=== PATIENT | female | born 1955 | race African-American/Black ===

== ENCOUNTER 2018-08-04 10:07 | Emergency (ER) | payer SELFPAY ==
[~2018-08-04] VITALS: Ht 180.3 cm; Wt 97.1 kg
[~2018-08-04 10:07] MED LIST: IBUPROFEN400 MG ORAL; IBUPROFEN600 MG ORAL; NKM
--- NOTE | 2018-08-04 10:26 | Emergency Room Report ---
History of Present Illness General Chief Complaint: Chest Pain Source: Patient Present Illness HPI 62-year-old female with history of stage III kidney disease otherwise no medical problems presents with chest pressure, dizziness, nausea vomiting, symptoms started last night, she can't think of any obvious triggers, she denies abdominal pain, denies fever, does report a mild nonproductive cough this morning, denies leg pain, leg swelling, hemoptysis, diarrhea, back pain, numbness, tingling, weakness, slurred speech, any other symptoms. Allergies: Coded Allergies: No Known Allergies (Unverified , 08/04/18) Patient History Past Medical History: see triage record Reviewed Nursing Documentation: PMH: Agreed; PSxH: Agreed Nursing Documentation-PMH Past Medical History: No Stated History Review of Systems All Other Systems: negative except mentioned in HPI Physical Exam Vital Signs Date Time Temp Pulse Resp B/P (MAP) Pulse Ox O2 Delivery O2 Flow Rate FiO2 08/04/18 10:19 98.4 93 19 134/77 100 Room Air Sp02 EP Interpretation: reviewed, normal General Appearance: no apparent distress, alert, non-toxic Head: normocephalic Eyes: bilateral eye normal inspection, bilateral eye PERRL, bilateral eye EOMI ENT: normal ENT inspection, hearing grossly normal, normal pharynx, no angioedema, normal voice, moist mucus membranes Neck: normal inspection, full range of motion, supple, supple/symm/no masses Respiratory: chest non-tender, lungs clear, normal breath sounds, no rhonchi, no respiratory distress, no retraction, no accessory muscle use, speaking full sentences, chest symmetrical, palpation of chest normal Cardiovascular #1: normal peripheral pulses, regular rate, rhythm, no edema, no gallop, no JVD, no murmur, no rub Cardiovascular #2: 2+ radial (R), 2+ radial (L) Gastrointestinal: normal inspection, non tender, soft, no mass, no guarding, no rebound Rectal: deferred Genitourinary: normal inspection, no CVA tenderness Musculoskeletal: back normal, gait/station normal, normal range of motion, non- tender, no calf tenderness, Devan's Sign negative Neurologic: alert, responsive, 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 III-XII nml as tested, motor strength/tone normal, sensory intact, speech normal Psychiatric: judgement/insight normal, memory normal, mood/affect normal, anxious Skin: normal color, no rash, warm/dry, normal turgor Lymphatic: no adenopathy Medical Decision Making Diagnostic Impression: Primary Impression: Chest pain Additional Impression: Dizziness ER Course Patient with normal chest x-ray, head CT, basic labs, EKG, blood pressure, clinical examination, do not suspect TIA, ACS, any other acute abnormalities, patient normal pulse examination, will discharge with reassurance, suspect patient is under a lot of anxiety and that may be attributing to her symptomatology. She understands that she is to return if she develops any recurrent chest pain or any new symptoms at all. Currently she has no symptoms. EKG Diagnostic Results EKG Time: 10:25 EP Interpretation: no stemi Rate: normal Rhythm: NSR ST Segments: no acute changes ASA given to the pt in ED: No Rhythm Strip Diag. Results Rhythm Strip Time: 10:33 EP Interpretation: yes Rate: 84 Chest X-Ray Diagnostic Results Chest X-Ray Diagnostic Results : Chest X-Ray Ordered: Yes # of Views/Limited/Complete: 1 View Indication: Chest Pain EP Interpretation: Yes Interpretation: no consolidation, no effusion, no pneumothorax, no acute cardiopulmonary disease Impression: No acute disease Electronically Signed by: Anna Philip MD Last Vital Signs Date Time Temp Pulse Resp B/P (MAP) Pulse Ox O2 Delivery O2 Flow Rate FiO2 08/04/18 10:19 98.4 93 19 134/77 100 Room Air Disposition: HOME, SELF-CARE ANNA PHILIP M.D Aug 04, 2018 10:26
[2018-08-04] MEDS ORDERED: Meclizine 25mg tab ORAL ONE (10:30)
[2018-08-04 10:57] LABS: HEMATOCRIT 41.2 % (37.0-47.0); HEMOGLOBIN 13.8 G/DL (12.0-16.0); MEAN CORPUSCULAR VOLUME 90 FL (80-99); PLATELET COUNT 163 K/UL (150-450); RED CELL DISTRIBUTION WIDTH 10.9 % (11.6-14.8); WHITE BLOOD COUNT 8.2 K/UL (4.8-10.8)
[2018-08-04 11:05] LABS: ANION GAP 12 mmol/L (5-15); BLOOD UREA NITROGEN 12 mg/dL (7-18); CALCIUM 8.8 MG/DL (8.5-10.1); CARBON DIOXIDE 23 MMOL/L (21-32); CHLORIDE 104 MMOL/L (98-107); CREATININE 1.1 MG/DL (0.55-1.30); POTASSIUM 4.4 MMOL/L (3.5-5.1); SODIUM 139 MMOL/L (136-145)
[2018-08-04 11:07] LABS: ALANINE AMINOTRANSFERASE 17 U/L (12-78); ALBUMIN 3.7 G/DL (3.4-5.0); ALBUMIN/GLOBULIN RATIO 0.9 (1.0-2.7); ALKALINE PHOSPHATASE 89 U/L (46-116); ASPARTATE AMINO TRANSFERASE 25 U/L (15-37); BILIRUBIN,TOTAL 0.5 MG/DL (0.2-1.0)
[2018-08-04 11:11] VITALS: BP 143/83
--- NOTE | 2018-08-04 11:17 | Diagnostic Imaging Report ---
Indication: Chest pain Technique: One view of the chest Comparison: 02/28/2015 Findings: Lungs and pleural spaces are clear. Heart size is normal. No significant interim change Impression: No acute process
--- NOTE | 2018-08-04 11:19 | Diagnostic Imaging Report ---
Indication: Dizziness Technique: Continuous helical CT scanning of the head was performed without intravenous contrast material. Axial and coronal 5 mm sections were generated. Radiation dose was minimized using automated exposure control Dose: Total Dose Length Product - DLP 1333.[address] Dose Index - CTDIvol(s) 70.38 mGy. Comparison: none Findings: The ventricular system is normal in size and configuration. There is no shift of midline structures. No abnormal extra-axial fluid collections are noted. There is no evidence of intracerebral bleeding. No other abnormal high or low density areas are noted within the brain. Impression: Normal CT scan of the head without contrast material. The CT scanner at [facility] is accredited by the [employer] and the scans are performed using protocols designed to limit radiation exposure to as low as reasonably achievable to attain images of sufficient resolution adequate for diagnostic evaluation. Noncontrast
[2018-08-04] MEDS ORDERED: RANITIDINE HCL150 MG ORAL (12:53)
[2018-08-04] MEDS ORDERED: MECLIZINE HCL25 MG ORAL (12:53)
[2018-08-04 13:06] VITALS: BP 98/80
[2018-08-04 13:07] VITALS: BP 98/80
--- NOTE | 2018-08-06 14:14 | Cardiology Report ---
APPROVED REPORT EKG Measurement Heart [id number] Normal sinus rhythm Normal ECG
== END 2018-08-04 13:13 | disposition home or self-care (01) ==
LOC: EMR 10:29
DX: R07.89 Other chest pain (principal); R42 Dizziness and giddiness
CPT/HCPCS: 36415; 70450; 71045; 80053; 84484; 85007; 85025; 93005; 96374; 99284; J2405

== ENCOUNTER 2019-11-13 09:23 | Emergency (ER) | payer BC, MEDICAID ==
[~2019-11-13] VITALS: Ht 185.4 cm; Wt 95.3 kg
[2019-11-13 09:22] VITALS: BP 158/80
[~2019-11-13 09:23] MED LIST changes: +MECLIZINE HCL25 MG ORAL; +RANITIDINE HCL150 MG ORAL
--- NOTE | 2019-11-13 09:24 | NUR ---
ED Nurse Note: pt walked in to ER from home due to dry cough and runny nose x 2 days. pt aao x4 and ambulatory. skin clean and intact. pt requested for extra masks and gloves for herself to take home. pt provided one mask and advised to wash hands. pt complained about not being provided mask and gloves for her to take home. pt not coughing at this time. no cardiac or pulmonary distress noted at this time.
[2019-11-13] MEDS ORDERED: ACETAMINOPHEN325 M1 ORAL (09:43)
[2019-11-13] MEDS ORDERED: ROBITUSSIN COU118 M1 ORAL (09:43)
--- NOTE | 2019-11-13 09:48 | NUR ---
ED Nurse Note: Pt cleared by health care Provider for discharge. DC instructions/electronically sent prescription was given and explained to pt and verbalized understanding of teachings. All medical deviecs such as ID band removed. Pt is AAO x4, ambulatory and left with all personal belongings.
--- NOTE | 2019-11-13 09:48 | Emergency Room Report ---
History of Present Illness General Chief Complaint: Flu Like Symptoms Source: Patient Present Illness HPI Disclaimer: Please note that this report is being documented using DRAGON technology. This can lead to erroneous entry secondary to incorrect interpretation by the dictating instrument. HPI: 64-year-old female presents for evaluation of cough. Symptoms present 2 to 3 days. She notes an runny nose and a intermittent cough that was worse last night. Denies shortness of breath, palpitations, fever, chills, nausea, vomiting, diarrhea. Reports myalgias. Patient's family with whom she lives have had mild upper respiratory symptoms. Patient has been isolating per CDC and health department guidelines regarding the galarza virus outbreak in the area. She denies any medical history, denies history of lung disease, no recent travel. She presents requesting testing for galarza virus. PMH: Denies PSH: Reviewed Allergies: Denies Social Hx: Denies tobacco or alcohol use Allergies: Coded Allergies: No Known Allergies (Unverified , 08/04/18) COVID-19 Screening Contact w/high risk pt: No Recent Travel to affected area: No Experienced COVID-19 symptoms?: Yes COVID-19 symptoms experienced: Cough, Runny Nose Nursing Documentation-PMH Past Medical History: No Stated History Review of Systems All Other Systems: negative except mentioned in HPI Physical Exam Vital Signs Date Time Temp Pulse Resp B/P (MAP) Pulse Ox O2 Delivery O2 Flow Rate FiO2 11/13/19 09:18 97.9 73 18 158/80 (106) 97 Room Air General: Awake and alert, no acute distress HEENT: NC/AT. EOMI. Cardiovascular: RRR. S1 and S2 normal. No murmur appreciated Resp: Normal work of breathing. No cough, wheezing or crackles appreciated Abdomen: Abdomen is soft, nondistended. Nontender Skin: Intact. No abrasions, laceration or rash over the exposed skin MSK: Normal tone and bulk. Moving all extremities. No obvious deformity. Neuro: Awake and alert. Mentating appropriately. Medical Decision Making Diagnostic Impression: Primary Impression: Influenza-like symptoms Additional Impression: Suspected 2019 novel coronavirus infection ER Course Differential includes was not limited to viral syndrome, influenza, novel coronavirus infection, upper respiratory syndrome, GERD, pneumonia, bronchitis.Well-appearing 64-year-old female presents with 2 days cough chest congestion. Vital signs are stable, no cough presently, no respiratory distress and saturating well on room air. Physical exam is reassuring. Patient does not require emergent labs or imaging at this time. She is requesting testing for the novel coronavirus however at this time we are unable to test due to lack of testing kits. Based on the patient's presenting signs, symptoms and physical exam findings, the patient has been screened and is suspected to have COVID-19. Will continue isolation, encouraged frequent handwashing, disinfecting of services and all other guidelines per health department recommendations. Information regarding these guidelines has been provided to the patient and her discharge instructions. She will follow-up on an outpatient basis with clinic and return to the emergency department new or worsening symptoms. She understands and agrees with this treatment plan. Will be discharged home. Last Vital Signs Date Time Temp Pulse Resp B/P (MAP) Pulse Ox O2 Delivery O2 Flow Rate FiO2 11/13/19 09:22 97.9 73 18 158/80 97 Room Air Disposition: HOME, SELF-CARE Condition: Stable Scripts Guaifenesin/D-Methorphan Hb/Pe (ROBITUSSIN COUGH-COLD CF LIQ*) 118 Ml Liquid 10 ML ORAL Q8H PRN for FOR COUGH, #118 ML Prov: Ronnell Hairston MD 11/13/19 Acetaminophen* (ACETAMINOPHEN 325MG TABLET*) 325 Mg Tablet 650 MG ORAL Q6H PRN for fever, #50 TAB Prov: Ronnell Hairston MD 11/13/19 Referrals: [facility]. [facility] Patient Instructions: Viral Respiratory Infection Additional Instructions: Call your primary physician as soon as possible to discuss emergency department visit. You may require reevaluation or further testing per your doctor's recommendations. Limit your contact with others as much as possible over the next 14 days. Stay minimum of 6 feet away from others, do not attend large gatherings and clean and disinfect all heavily used surfaces. Follow CDC guidelines for isolation and infection prevention. If you experience any new or worsening symptoms discussed with your doctor or return to the emergency department for reevaluation. Ronnell Hairston MD Nov 13, 2019 09:48
--- NOTE | 2019-11-13 09:49 | NUR ---
ED Nurse Note: pt refused to sign on dc paper as stating "You didn't give me gloves, I don't have gloves on. I can't sign." witnessed by ATUL Diaz. pt left without signing on paper but pt has discharge papers.
== END 2019-11-13 10:00 | disposition home or self-care (01) ==
LOC: EDBD 09:23 → EMR 09:50
DX: R05 Cough (principal); Z03.818 Encounter for observation for suspected exposure to other biological agents ruled out; R09.89 Other specified symptoms and signs involving the circulatory and respiratory systems
CPT/HCPCS: 99282